=== PATIENT | male | born 1960 | race Caucasian/White ===

== ENCOUNTER 2020-04-25 11:40 | Inpatient (IN) | payer MEDICAID, SELFPAY ==
[~2020-04-25] VITALS: Ht 170.2 cm; Wt 83.0 kg
[2020-04-25 12:06] VITALS: BP_SYST 97
[2020-04-25 12:24] LABS: HEMATOCRIT 26.3 % (36-54); HEMOGLOBIN 8.6 g/dL (14.0-18.0); MEAN CORPUSCULAR HEMOGLOBIN 33 pg (27-31); MEAN CORPUSCULAR HGB CONC 33 % (32-36); MEAN CORPUSCULAR VOLUME 100 fL (79.0-98.0); RED BLOOD CELL COUNT(AUTO) 2.62 MIL/uL (4.2-6.2); WHITE BLOOD COUNT (AUTO) 3.2 K/uL (4.8-10.8)
[2020-04-25] MEDS ORDERED: FURO-150 PO (12:25)
[2020-04-25] MEDS ORDERED: LACT10PA5 PO (12:25)
[2020-04-25] MEDS ORDERED: SPIR50TA PO (12:25)
[2020-04-25] MEDS ORDERED: FLEET PR (12:25)
[2020-04-25] MEDS ORDERED: ACET325S7 PO (12:25)
[2020-04-25] MEDS ORDERED: SIME80TA5 PO (12:25)
[2020-04-25] MEDS ORDERED: PROP10TA10 PO (12:25)
[2020-04-25] MEDS ORDERED: MOM PO (12:25)
[2020-04-25] MEDS ORDERED: BISA10SU61 PR (12:25)
[2020-04-25 12:37] LABS: BILIRUBIN,URINE NEGATIVE (NEGATIVE); BLOOD, URINE 1+ (NEGATIVE); CLARITY/URINE CLEAR (CLEAR); COLOR,URINE YELLOW (YELLOW); GLUCOSE,URINE NEGATIVE (NEGATIVE); KETONES,URINE NEGATIVE (NEGATIVE); LEUKOCYTE ESTERASE ,URINE NEGATIVE (NEGATIVE); NITRITE, URINE NEGATIVE (NEGATIVE); PROTEIN URINE NEGATIVE (NEGATIVE)
[2020-04-25 12:39] LABS: CALCIUM 7.4 mg/dL (8.4-11.0); CREATININE 1.25 mg/dL (0.55-1.30); POTASSIUM 5.2 mmol/L (3.5-5.1)
[2020-04-25 12:42] LABS: BACTERIA,URINE MODERATE /HPF (None Seen)
[2020-04-25 12:44] LABS: PLATELET COUNT (AUTO) 40 K/uL (130-430)
[2020-04-25 12:59] LABS: ATYPICAL LYMPHOCYTES % 0 % (0-0); BAND % (MANUAL) 1 % (0-6); BASOPHILS % (MANUAL) 0 % (0-2); EOSINOPHILS % (MANUAL) 3 % (0-7); LYMPHOCYTES % (MANUAL) 47 % (20-46); MONOCYTES % (MANUAL) 7 % (0-11)
[2020-04-25 13:01] LABS: BARBITURATE, URINE NEGATIVE (NEG <=200); BENZODIAZEPINE, URINE NEGATIVE (NEG <=150); CANNABINOID, URINE NEGATIVE (NEG <=50); COCAINE, URINE NEGATIVE (NEG <=150); METHAMPHETAMINES SCREEN,URINE NEGATIVE (NEG <=500); OPIATE, URINE NEGATIVE (NEG <=100); PHENCYCLIDINE SCREEN,URINE NEGATIVE (NEG <=25); UR TRICYCLIC ANTIDEPRESSANTS NEGATIVE (NEG <=300); URINE AMPHETAMINE NEGATIVE (NEG <=500); URINE METHADONE NEGATIVE (NEG <=200); URINE OXYCODONE SCREEN NEGATIVE (NEG <=100); URINE PROPOXYPHENE SCREEN NEGATIVE (NEG <=300)
[2020-04-25 13:02] LABS: INR 1.4 (0.80-1.20); PROTHROMBIN TIME 13.5 SECS (9.5-12.5)
[2020-04-25 13:06] LABS: ALBUMIN 2.4 g/dL (3.4-4.8)
[2020-04-25] MEDS ORDERED: LACTULOSE 20 GM/30 ML UDC RC ONE (14:00)
[2020-04-25 15:50] VITALS: BP_SYST 103
[2020-04-25] MEDS ORDERED: MORPHINE 2 MG/ML INJ. SYRINGE IVP PRN (16:15)
[2020-04-25] MEDS ORDERED: DOCUSATE SODIUM 100 MG CAPSULE PO PRN (16:15)
[2020-04-25] MEDS ORDERED: MAGNESIUM SULFATE 50 ML IV PRN (16:15)
[2020-04-25] MEDS ORDERED: MUPIROCIN 2% TOPICAL OINTMENT 22 GM NS PRN (16:15)
[2020-04-25] MEDS ORDERED: ONDANSETRON HCL 4 MG/2 ML VIAL IVP PRN (16:15)
[2020-04-25] MEDS ORDERED: POTASSIUM CHLORIDE 20 MEQ TAB.PRT.SR PO PRN (16:15)
[2020-04-25 16:18] VITALS: BP_SYST 103
[2020-04-25] MEDS ORDERED: SODIUM POLYSTYRENE SULFONATE 15 GM/60 ML UDBTL PO ONE (16:30)
[2020-04-25] MEDS: LEVOFLOXACIN 500 MG/D5W 100 ML IV SCH (18:53)
[2020-04-25 20:00] VITALS: BP_SYST 115
[2020-04-25] MEDS: RIFAXIMIN 550 MG TABLET PO SCH (21:00)
[2020-04-25] MEDS ORDERED: LACTULOSE 20 GM/30 ML UDC PO SCH (21:00)
[2020-04-25] MEDS: PROPRANOLOL HCL 10 MG TABLET (INDERAL) PO SCH (22:41)
[2020-04-25] MEDS: LACTULOSE 20 GM/30 ML UDC NG SCH (22:41)
[2020-04-25] MEDS: D5NS 1,000 ML IV SCH (22:42)
[2020-04-25] MEDS: LORazepam 2 MG/ML VIAL IVP PRN (22:52)
[2020-04-26 00:23] VITALS: BP_SYST 113
[2020-04-26 07:49] LABS: TOTAL IRON BIND. CAPACITY 267 ug/dL (250-450)
[2020-04-26 07:50] VITALS: BP_SYST 117
[2020-04-26 07:54] LABS: ALBUMIN 2.3 g/dL (3.4-4.8); CALCIUM 7.8 mg/dL (8.4-11.0); CREATININE 1.11 mg/dL (0.55-1.30); POTASSIUM 4.2 mmol/L (3.5-5.1)
[2020-04-26] MEDS: PROPRANOLOL HCL 10 MG TABLET (INDERAL) PO SCH ×2 (09:00→21:10)
[2020-04-26] MEDS: SPIRONOLACTONE 50 MG TABLET (ALDACTONE) PO SCH (10:53)
[2020-04-26] MEDS: RIFAXIMIN 550 MG TABLET PO SCH ×2 (10:53→21:10)
[2020-04-26] MEDS: LACTULOSE 20 GM/30 ML UDC NG SCH ×3 (10:54→21:10)
[2020-04-26 12:15] VITALS: BP_SYST 95
[2020-04-26 13:49] LABS: BASOPHILS # (AUTO) 0.1 K/uL (0.0-0.2); BASOPHILS % (AUTO) 3.9 % (0.0-2.0); EOSINOPHILS # (AUTO) 0.1 K/uL (0.0-0.4); EOSINOPHILS % (AUTO) 2.8 % (0.0-4.0); HEMATOCRIT 27.3 % (36-54); HEMOGLOBIN 8.9 g/dL (14.0-18.0); LYMPHOCYTES # (AUTO) 1.3 K/uL (1.0-5.5); LYMPHOCYTES % (AUTO) 44.9 % (20.5-51.5); MEAN CORPUSCULAR HEMOGLOBIN 33 pg (27-31); MEAN CORPUSCULAR HGB CONC 33 % (32-36); MEAN CORPUSCULAR VOLUME 101 fL (79.0-98.0); MONOCYTES # (AUTO) 0.2 K/uL (0.0-1.0); MONOCYTES % (AUTO) 7.4 % (1.7-9.3); NEUTROPHILS # (AUTO) 1.2 K/uL (1.8-7.7); RED CELL DISTRIBUTION WIDTH 17.3 % (9.0-15.0); WHITE BLOOD COUNT (AUTO) 2.9 K/uL (4.8-10.8)
[2020-04-26 13:57] LABS: PLATELET COUNT (AUTO) 37 K/uL (130-430)
[2020-04-26] MEDS: D5NS 1,000 ML IV SCH (15:46)
[2020-04-26] MEDS: LEVOFLOXACIN 500 MG/D5W 100 ML IV SCH (16:06)
[2020-04-26 16:19] VITALS: BP_SYST 128
[2020-04-26] MEDS: MORPHINE 2 MG/ML INJ. SYRINGE IVP PRN (16:42)
[2020-04-26 20:00] VITALS: BP_SYST 123
[2020-04-26 22:16] VITALS: BP_SYST 147
[2020-04-27] MEDS: MORPHINE 2 MG/ML INJ. SYRINGE IVP PRN ×2 (02:42→13:55)
[2020-04-27 07:43] LABS: BASOPHILS % (AUTO) 1.1 % (0.0-2.0); EOSINOPHILS # (AUTO) 0.1 K/uL (0.0-0.4); EOSINOPHILS % (AUTO) 2.8 % (0.0-4.0); HEMATOCRIT 25.3 % (36-54); HEMOGLOBIN 8.3 g/dL (14.0-18.0); LYMPHOCYTES # (AUTO) 1.3 K/uL (1.0-5.5); LYMPHOCYTES % (AUTO) 40.2 % (20.5-51.5); MEAN CORPUSCULAR HEMOGLOBIN 33 pg (27-31); MEAN CORPUSCULAR HGB CONC 33 % (32-36); MEAN CORPUSCULAR VOLUME 99 fL (79.0-98.0); MONOCYTES # (AUTO) 0.3 K/uL (0.0-1.0); NEUTROPHILS # (AUTO) 1.6 K/uL (1.8-7.7); NEUTROPHILS % (AUTO) 47.9 % (40.0-70.0); RED BLOOD CELL COUNT(AUTO) 2.56 MIL/uL (4.2-6.2); RED CELL DISTRIBUTION WIDTH 16.4 % (9.0-15.0); WHITE BLOOD COUNT (AUTO) 3.3 K/uL (4.8-10.8)
[2020-04-27 07:58] VITALS: BP_SYST 136
[2020-04-27 07:58] LABS: CALCIUM 7.7 mg/dL (8.4-11.0); CREATININE 0.97 mg/dL (0.55-1.30); POTASSIUM 4.2 mmol/L (3.5-5.1)
[2020-04-27 08:03] LABS: PLATELET COUNT (AUTO) 37 K/uL (130-430)
[2020-04-27 08:06] LABS: AFP, TUMOR MARKER 7.1 ng/mL (0.0-8.3)
[2020-04-27] MEDS: RIFAXIMIN 550 MG TABLET PO SCH ×2 (09:00→20:53)
[2020-04-27] MEDS: LACTULOSE 20 GM/30 ML UDC NG SCH ×3 (09:00→20:53)
[2020-04-27] MEDS: SPIRONOLACTONE 50 MG TABLET (ALDACTONE) PO SCH (09:01)
[2020-04-27] MEDS: PROPRANOLOL HCL 10 MG TABLET (INDERAL) PO SCH ×2 (09:01→20:54)
[2020-04-27] MEDS: D5NS 1,000 ML IV SCH ×2 (10:30→13:55)
[2020-04-27 11:06] LABS: FERRITIN 51 ng/mL (30-400)
[2020-04-27 12:15] VITALS: BP_SYST 131
[2020-04-27 16:09] VITALS: BP_SYST 145
[2020-04-27] MEDS: LEVOFLOXACIN 500 MG/D5W 100 ML IV SCH (17:00)
[2020-04-27 20:00] VITALS: BP_SYST 125
[2020-04-27 23:39] VITALS: BP_SYST 134
[2020-04-28 07:33] LABS: BASOPHILS % (AUTO) 0.6 % (0.0-2.0); EOSINOPHILS # (AUTO) 0.1 K/uL (0.0-0.4); EOSINOPHILS % (AUTO) 2.8 % (0.0-4.0); HEMATOCRIT 26.1 % (36-54); HEMOGLOBIN 8.7 g/dL (14.0-18.0); LYMPHOCYTES # (AUTO) 1.5 K/uL (1.0-5.5); LYMPHOCYTES % (AUTO) 43.2 % (20.5-51.5); MEAN CORPUSCULAR HEMOGLOBIN 33 pg (27-31); MEAN CORPUSCULAR HGB CONC 33 % (32-36); MEAN CORPUSCULAR VOLUME 98 fL (79.0-98.0); MONOCYTES # (AUTO) 0.3 K/uL (0.0-1.0); MONOCYTES % (AUTO) 8.2 % (1.7-9.3); NEUTROPHILS # (AUTO) 1.6 K/uL (1.8-7.7); NEUTROPHILS % (AUTO) 45.2 % (40.0-70.0); RED BLOOD CELL COUNT(AUTO) 2.67 MIL/uL (4.2-6.2); RED CELL DISTRIBUTION WIDTH 16.3 % (9.0-15.0); WHITE BLOOD COUNT (AUTO) 3.5 K/uL (4.8-10.8)
[2020-04-28 07:44] LABS: CALCIUM 7.5 mg/dL (8.4-11.0); CREATININE 1.08 mg/dL (0.55-1.30)
[2020-04-28 07:51] LABS: PLATELET COUNT (AUTO) 35 K/uL (130-430)
[2020-04-28] MEDS: RIFAXIMIN 550 MG TABLET PO SCH ×2 (08:26→23:41)
[2020-04-28] MEDS: LACTULOSE 20 GM/30 ML UDC NG SCH ×3 (08:26→23:41)
[2020-04-28] MEDS: SPIRONOLACTONE 50 MG TABLET (ALDACTONE) PO SCH (08:27)
[2020-04-28] MEDS: PROPRANOLOL HCL 10 MG TABLET (INDERAL) PO SCH ×3 (08:27→21:00)
[2020-04-28 08:30] VITALS: BP_SYST 139
[2020-04-28 12:49] VITALS: BP_SYST 120
[2020-04-28] MEDS: LEVOFLOXACIN 500 MG/D5W 100 ML IV SCH (16:05)
[2020-04-28 18:19] VITALS: BP_SYST 106
[2020-04-28] MEDS: MORPHINE 2 MG/ML INJ. SYRINGE IVP PRN (18:52)
[2020-04-28] MEDS: D5NS 1,000 ML IV SCH (19:10)
[2020-04-28 20:00] VITALS: BP_SYST 126
[2020-04-28 22:08] LABS: HEPATITIS A AB, IgM Negative (Negative); HEPATITIS B CORE AB, IgM Negative (Negative); HEPATITIS B SURFACE AG Negative (Negative)
[2020-04-29 00:14] VITALS: BP_SYST 139
[2020-04-29] MEDS: MORPHINE 2 MG/ML INJ. SYRINGE IVP PRN ×2 (01:13→12:20)
[2020-04-29 07:10] LABS: BASOPHILS % (AUTO) 0.8 % (0.0-2.0); EOSINOPHILS # (AUTO) 0.1 K/uL (0.0-0.4); EOSINOPHILS % (AUTO) 2.8 % (0.0-4.0); HEMATOCRIT 25.4 % (36-54); HEMOGLOBIN 8.5 g/dL (14.0-18.0); LYMPHOCYTES # (AUTO) 1.5 K/uL (1.0-5.5); MEAN CORPUSCULAR HEMOGLOBIN 33 pg (27-31); MEAN CORPUSCULAR HGB CONC 34 % (32-36); MEAN CORPUSCULAR VOLUME 97 fL (79.0-98.0); MONOCYTES # (AUTO) 0.3 K/uL (0.0-1.0); MONOCYTES % (AUTO) 8.6 % (1.7-9.3); NEUTROPHILS # (AUTO) 1.2 K/uL (1.8-7.7); NEUTROPHILS % (AUTO) 38.8 % (40.0-70.0); RED BLOOD CELL COUNT(AUTO) 2.62 MIL/uL (4.2-6.2); WHITE BLOOD COUNT (AUTO) 3.1 K/uL (4.8-10.8)
[2020-04-29 07:48] LABS: CALCIUM 7.5 mg/dL (8.4-11.0); CREATININE 1.01 mg/dL (0.55-1.30); POTASSIUM 3.7 mmol/L (3.5-5.1)
[2020-04-29 08:17] LABS: PLATELET COUNT (AUTO) 34 K/uL (130-430)
[2020-04-29 08:34] VITALS: BP_SYST 124
[2020-04-29] MEDS: LACTULOSE 20 GM/30 ML UDC NG SCH ×3 (09:13→20:49)
[2020-04-29] MEDS: RIFAXIMIN 550 MG TABLET PO SCH ×2 (09:14→20:50)
[2020-04-29] MEDS: SPIRONOLACTONE 50 MG TABLET (ALDACTONE) PO SCH (09:14)
[2020-04-29] MEDS: PROPRANOLOL HCL 10 MG TABLET (INDERAL) PO SCH ×2 (09:14→20:49)
[2020-04-29 11:06] LABS: ANTI-SMOOTH MUSCLE AB 11 Units (0-19)
[2020-04-29 12:15] LABS: ANTI NUCLEAR AB WITH REFLEX Negative (Negative)
[2020-04-29 12:40] VITALS: BP_SYST 116
[2020-04-29 14:58] LABS: ALPHA-1-ANTITRYPSIN, S 100 mg/dL (101-187)
[2020-04-29 16:00] VITALS: BP_SYST 127
[2020-04-29] MEDS: LEVOFLOXACIN 500 MG/D5W 100 ML IV SCH (16:53)
[2020-04-29] MEDS: D5NS 1,000 ML IV SCH (17:26)
[2020-04-29 20:00] VITALS: BP_SYST 124
[2020-04-29] MEDS: ACETAMINOPHEN 325 MG TABLET PO PRN (23:29)
[2020-04-29 23:38] VITALS: BP_SYST 121
[2020-04-30] MEDS: ZOLPIDEM TARTRATE 5 MG TABLET PO PRN (00:36)
[2020-04-30 07:25] LABS: BASOPHILS % (AUTO) 0.7 % (0.0-2.0); EOSINOPHILS # (AUTO) 0.1 K/uL (0.0-0.4); HEMATOCRIT 24.3 % (36-54); HEMOGLOBIN 8.3 g/dL (14.0-18.0); LYMPHOCYTES # (AUTO) 1.6 K/uL (1.0-5.5); LYMPHOCYTES % (AUTO) 50.7 % (20.5-51.5); MEAN CORPUSCULAR HEMOGLOBIN 33 pg (27-31); MEAN CORPUSCULAR HGB CONC 34 % (32-36); MEAN CORPUSCULAR VOLUME 96 fL (79.0-98.0); MONOCYTES # (AUTO) 0.3 K/uL (0.0-1.0); MONOCYTES % (AUTO) 8.8 % (1.7-9.3); NEUTROPHILS # (AUTO) 1.1 K/uL (1.8-7.7); NEUTROPHILS % (AUTO) 36.8 % (40.0-70.0); RED BLOOD CELL COUNT(AUTO) 2.53 MIL/uL (4.2-6.2); WHITE BLOOD COUNT (AUTO) 3.1 K/uL (4.8-10.8)
[2020-04-30 07:48] LABS: CALCIUM 7.5 mg/dL (8.4-11.0); CREATININE 1.02 mg/dL (0.55-1.30); POTASSIUM 3.6 mmol/L (3.5-5.1)
[2020-04-30 08:00] VITALS: BP_SYST 139
[2020-04-30 08:53] LABS: PLATELET COUNT (AUTO) 35 K/uL (130-430)
[2020-04-30] MEDS: LACTULOSE 20 GM/30 ML UDC NG SCH ×3 (09:43→21:37)
[2020-04-30] MEDS: RIFAXIMIN 550 MG TABLET PO SCH ×2 (09:43→21:37)
[2020-04-30] MEDS: PROPRANOLOL HCL 10 MG TABLET (INDERAL) PO SCH ×2 (09:45→21:38)
[2020-04-30] MEDS: SPIRONOLACTONE 50 MG TABLET (ALDACTONE) PO SCH (09:46)
[2020-04-30 12:36] VITALS: BP_SYST 117
[2020-04-30 16:35] VITALS: BP_SYST 115
[2020-04-30] MEDS: D5NS 1,000 ML IV SCH (18:23)
[2020-04-30 20:00] VITALS: BP_SYST 127
[2020-04-30 23:42] VITALS: BP_SYST 137
[2020-04-30] MEDS: LORazepam 2 MG/ML VIAL IVP PRN (23:43)
[2020-05-01 00:03] VITALS: BP_SYST 137
[2020-05-01 07:16] LABS: INR 1.4 (0.80-1.20); PROTHROMBIN TIME 13.8 SECS (9.5-12.5)
[2020-05-01 07:31] LABS: ALBUMIN 2.8 g/dL (3.4-4.8); BILIRUBIN,DIRECT 1.2 mg/dL (0.0-0.3); TOTAL BILIRUBIN 5.2 mg/dL (0.0-1.0)
[2020-05-01 08:03] VITALS: BP_SYST 124
[2020-05-01] MEDS: LACTULOSE 20 GM/30 ML UDC NG SCH ×3 (08:47→20:45)
[2020-05-01] MEDS: PROPRANOLOL HCL 10 MG TABLET (INDERAL) PO SCH ×2 (08:48→20:46)
[2020-05-01] MEDS: RIFAXIMIN 550 MG TABLET PO SCH ×2 (08:48→20:46)
[2020-05-01] MEDS: SPIRONOLACTONE 50 MG TABLET (ALDACTONE) PO SCH (08:49)
[2020-05-01 12:36] VITALS: BP_SYST 115
[2020-05-01] MEDS: D5NS 1,000 ML IV SCH (14:22)
[2020-05-01 15:58] VITALS: BP_SYST 121
[2020-05-01 20:00] VITALS: BP_SYST 109
[2020-05-01] MEDS: ZOLPIDEM TARTRATE 5 MG TABLET PO PRN (23:23)
[2020-05-02 02:20] VITALS: BP_SYST 115
[2020-05-02 07:00] VITALS: BP_SYST 118
[2020-05-02 08:00] VITALS: BP_SYST 118
[2020-05-02] MEDS: SPIRONOLACTONE 50 MG TABLET (ALDACTONE) PO SCH (08:35)
[2020-05-02] MEDS: ACETAMINOPHEN 325 MG TABLET PO PRN (08:35)
[2020-05-02] MEDS: LACTULOSE 20 GM/30 ML UDC NG SCH ×3 (08:35→22:15)
[2020-05-02] MEDS ORDERED: RIFAXIMIN 550 MG TABLET PO ONE (10:00)
[2020-05-02] MEDS: D5NS 1,000 ML IV SCH (10:08)
[2020-05-02] MEDS: PROPRANOLOL HCL 10 MG TABLET (INDERAL) PO SCH ×2 (12:20→21:00)
[2020-05-02 12:28] VITALS: BP_SYST 115
[2020-05-02 16:52] VITALS: BP_SYST 122
[2020-05-02 20:00] VITALS: BP_SYST 96
[2020-05-02] MEDS: RIFAXIMIN 550 MG TABLET PO SCH (22:15)
[2020-05-02] MEDS: ZOLPIDEM TARTRATE 5 MG TABLET PO PRN (22:28)
[2020-05-03 00:04] VITALS: BP_SYST 110
[2020-05-03] MEDS ORDERED: HALOPERIDOL LACTATE 5 MG/ML VIAL IM ONE (00:45)
[2020-05-03] MEDS: RIFAXIMIN 550 MG TABLET PO SCH ×2 (09:00→21:12)
[2020-05-03 10:30] VITALS: BP_SYST 102
[2020-05-03] MEDS: LACTULOSE 20 GM/30 ML UDC NG SCH ×3 (10:35→21:11)
[2020-05-03] MEDS: SPIRONOLACTONE 50 MG TABLET (ALDACTONE) PO SCH (10:35)
[2020-05-03] MEDS: PROPRANOLOL HCL 10 MG TABLET (INDERAL) PO SCH ×2 (10:36→21:12)
[2020-05-03 12:47] VITALS: BP_SYST 100
[2020-05-03 16:55] VITALS: BP_SYST 104
[2020-05-03 20:00] VITALS: BP_SYST 100
[2020-05-03] MEDS ORDERED: URSODIOL 300 MG CAPSULE PO SCH (21:00)
[2020-05-03] MEDS: LORazepam 2 MG/ML VIAL IVP PRN (23:26)
[2020-05-04] MEDS: MORPHINE 2 MG/ML INJ. SYRINGE IVP PRN (00:21)
[2020-05-04 00:36] VITALS: BP_SYST 90
[2020-05-04] MEDS: LORazepam 2 MG/ML VIAL IVP PRN (03:44)
[2020-05-04 07:27] VITALS: BP_SYST 106
[2020-05-04 07:40] LABS: ALBUMIN 2.4 g/dL (3.4-4.8); BILIRUBIN,DIRECT 0.9 mg/dL (0.0-0.3); TOTAL BILIRUBIN 2.5 mg/dL (0.0-1.0)
[2020-05-04] MEDS: LACTULOSE 20 GM/30 ML UDC NG SCH ×3 (08:44→21:00)
[2020-05-04] MEDS: RIFAXIMIN 550 MG TABLET PO SCH ×2 (08:44→21:00)
[2020-05-04] MEDS: SPIRONOLACTONE 50 MG TABLET (ALDACTONE) PO SCH (08:45)
[2020-05-04] MEDS: PROPRANOLOL HCL 10 MG TABLET (INDERAL) PO SCH ×2 (08:45→21:00)
[2020-05-04] MEDS: URSODIOL 300 MG CAPSULE PO SCH ×2 (08:46→21:00)
[2020-05-04 12:27] VITALS: BP_SYST 102
[2020-05-04 16:50] VITALS: BP_SYST 115
[2020-05-04 19:00] VITALS: BP_SYST 112
[2020-05-04 20:00] VITALS: BP_SYST 112
[2020-05-04] MEDS ORDERED: cloNIDine HCL 0.1 MG TABLET PO ONE (20:00)
[2020-05-04] MEDS ORDERED: URSO300C24 PO (20:31)
[2020-05-04] MEDS ORDERED: RIFA550T5 PO (20:31)
[2020-05-04] MEDS ORDERED: Lactulose PO (20:31)
[2020-05-04] MEDS ORDERED: HALOPERIDOL LACTATE 5 MG/ML VIAL IM ONE ×2 (20:45)
[2020-05-05 00:10] VITALS: BP_SYST 96
[2020-05-05] MEDS: MORPHINE 2 MG/ML INJ. SYRINGE IVP PRN (02:16)
[2020-05-05] MEDS: LORazepam 2 MG/ML VIAL IVP PRN (03:42)
[2020-05-05] MEDS ORDERED: MORPHINE 2 MG/ML INJ. SYRINGE IVP PRN ×2 (04:30)
[2020-05-05] MEDS ORDERED: ZOLPIDEM TARTRATE 5 MG TABLET PO PRN (04:30)
[2020-05-05] MEDS ORDERED: LORazepam 2 MG/ML VIAL IVP PRN (04:30)
[2020-05-05 08:00] VITALS: BP_SYST 118
[2020-05-05] MEDS: PROPRANOLOL HCL 10 MG TABLET (INDERAL) PO SCH ×2 (09:00→21:18)
[2020-05-05] MEDS: LACTULOSE 20 GM/30 ML UDC NG SCH ×3 (09:16→21:16)
[2020-05-05] MEDS: URSODIOL 300 MG CAPSULE PO SCH ×2 (09:16→23:00)
[2020-05-05] MEDS: SPIRONOLACTONE 50 MG TABLET (ALDACTONE) PO SCH (09:17)
[2020-05-05] MEDS: RIFAXIMIN 550 MG TABLET PO SCH ×2 (09:17→21:17)
[2020-05-05 12:20] VITALS: BP_SYST 131
[2020-05-05 16:22] VITALS: BP_SYST 123
[2020-05-05 20:00] VITALS: BP_SYST 117
[2020-05-06 00:10] VITALS: BP_SYST 120
[2020-05-06 08:33] VITALS: BP_SYST 93
[2020-05-06] MEDS: RIFAXIMIN 550 MG TABLET PO SCH (08:41)
[2020-05-06] MEDS: LACTULOSE 20 GM/30 ML UDC NG SCH (08:41)
[2020-05-06] MEDS: PROPRANOLOL HCL 10 MG TABLET (INDERAL) PO SCH (08:41)
[2020-05-06] MEDS: SPIRONOLACTONE 50 MG TABLET (ALDACTONE) PO SCH (09:12)
[2020-05-06] MEDS: URSODIOL 300 MG CAPSULE PO SCH (09:12)
[2020-05-06 12:20] VITALS: BP_SYST 110
[2020-05-06 14:51] VITALS: BP_SYST 110
[2020-05-06 16:20] VITALS: BP_SYST 116
== END 2020-05-06 14:28 ==
LOC: SED 11:40 → STU 15:10 → EEVIPCON 15:10 → STU 15:41 → SMU 05-02 13:24
PROVIDERS: ADMIT General Practice; ATTEND General Practice
DX: K74.60 Unspecified cirrhosis of liver (principal); E43 Unspecified severe protein-calorie malnutrition; D61.818 Other pancytopenia; D68.9 Coagulation defect, unspecified; D69.6 Thrombocytopenia, unspecified; K72.90 Hepatic failure, unspecified without coma; E87.5 Hyperkalemia; N39.0 Urinary tract infection, site not specified; R62.7 Adult failure to thrive; Z20.828 Contact with and (suspected) exposure to other viral communicable diseases; I10 Essential (primary) hypertension; Z66 Do not resuscitate; Z68.28 Body mass index [BMI] 28.0-28.9, adult; Z88.8 Allergy status to other drugs, medicaments and biological substances; Z79.899 Other long term (current) drug therapy
CPT/HCPCS: 36415; 36600; 70450-TC; 71045; 74018; 76700-TC; 80048; 80053; 80074; 80076; 80307; 81000-TC; 82103; 82105; 82140-TC; 82728; 82803-TC; 82962; 82977-TC; 83036; 83516; 83540-TC; 83550-TC; 83605; 83735-TC; 84484; 85007; 85025; 85027; 85610-TC; 85730-TC; 86038; 87040-TC; 87081; 87086; 92610-GN; 93005; 99285; G0378; J1630; J1956; J2060; J2270; J7042; J7060; U0003-CS